=== PATIENT | male | born 1970 | race Caucasian/White ===

== ENCOUNTER → 2016-09-26 | Outpatient (REF) ==
[~2016-09-26] MED LIST: COMPAZINE10 MG PO; DILAUDID4 MG PO; DOLOPHINE; NEXIUM PO
== END ==
LOC: ZLAB.WCH 18:04
DX: Z01.89 Encounter for other specified special examinations (principal)

== ENCOUNTER → 2018-06-22 | Outpatient (REF) ==
[2018-06-22 19:22] LABS: C-REACTIVE PROTEIN 0.6 mg/dL (0.0-0.9)
[2018-06-22 20:06] LABS: PSA-TOTAL 0.39 ng/mL (0-4)
== END ==
LOC: ZLAB.WCH 18:41
PROVIDERS: Internal Medicine
DX: Z01.89 Encounter for other specified special examinations (principal)
CPT/HCPCS: G0103